=== PATIENT | female | born 1980 | race African-American/Black ===

== ENCOUNTER 2020-11-02 12:19 | Observation (INO) | payer OTHER ==
[2020-11-02 14:34] LABS: BILIRUBIN,URINE NEGATIVE (NEG); CLARITY,URINE CLEAR; COLOR,URINE YELLOW; NITRITE,URINE NEGATIVE (NEG); PROTEIN,URINE NEGATIVE (NEG-TRACE); UROBILINOGEN,URINE 0.2 mg/dL (0.2 mg/dL)
[2020-11-02] MEDS ORDERED: ACET325T11 (14:39)
[2020-11-02] MEDS ORDERED: PREN1TAB58 (14:39)
[2020-11-02] MEDS ORDERED: ASPI-630 (14:39)
[2020-11-02 14:41] LABS: BACTERIA,URINE 0 /HPF (0-FEW); RBC,URINE 0 /HPF (0-2); WBC,URINE 0 /HPF (0-4)
[2020-11-02] MEDS ORDERED: CYCL10TA19 PO (17:30)
== END 2020-11-02 13:24 | disposition home or self-care (01) ==
LOC: 3 SO LND 12:19
PROVIDERS: ADMIT Obstetrics & Gynecology; ATTEND Obstetrics & Gynecology
DX: O99.891 Other specified diseases and conditions complicating pregnancy (principal); M54.9 Dorsalgia, unspecified; R10.9 Unspecified abdominal pain; O26.893 Other specified pregnancy related conditions, third trimester; M79.604 Pain in right leg; Z3A.28 28 weeks gestation of pregnancy
CPT/HCPCS: 59025; 81001; 87086; G0378; G0379

== ENCOUNTER 2020-11-02 13:57 | Emergency (ER) | payer OTHER ==
[~2020-11-02] VITALS: Ht 152.4 cm; Wt 66.3 kg
[2020-11-02] MEDS ORDERED: PREN1TAB58 (14:39)
[2020-11-02] MEDS ORDERED: ASPI-630 (14:39)
[2020-11-02] MEDS ORDERED: ACET325T11 (14:39)
[2020-11-02] MEDS ORDERED: CYCLOBENZAPRINE 10 MG TABLET. PO ONE (15:15)
[2020-11-02] MEDS ORDERED: MAGNESIUM CHLORIDE ER 64 MG TABLET.ER PO ONE (15:15)
[2020-11-02 16:55] LABS: CALCIUM 8.5 mg/dL (8.5-10.1); CREATININE 0.5 mg/dL (0.6-1.0); GFR 166.2; MAGNESIUM 1.7 mg/dL (1.8-2.4); POTASSIUM 3.6 mmol/L (3.5-5.1)
[2020-11-02] MEDS ORDERED: CYCL10TA2 PO (17:30)
--- NOTE | 2020-11-02 17:31 | ED.ADGEN ---
Past Medical History Past Medical History: No Pertinent History Past Surgical History: No Surgical History Smoking Status: Never Smoker Alcohol Use: None General Adult EDM: Chief Complaint: HIP PAIN HPI: HPI: Patient is a 40 year old [f__sex] who presents with [] Review of Systems: Review of Systems: Constitutional: Denies fever or chills. [] Eyes: Denies change in visual acuity. [] HENT: Denies nasal congestion or sore throat. [] Respiratory: Denies cough or shortness of breath. [] Cardiovascular: Denies chest pain or edema. [] GI: Denies abdominal pain, nausea, vomiting, bloody stools or diarrhea. [] : Denies dysuria. [] Musculoskeletal: Denies back pain or joint pain. [] Integument: Denies rash. [] Neurologic: Denies headache, focal weakness or sensory changes. [] Endocrine: Denies polyuria or polydipsia. [] Lymphatic: Denies swollen glands. [] Psychiatric: Denies depression or anxiety. [] Current Medications: Current Medications Medications (Trade) Dose Ordered Sig/Kirk Start Time Stop Time Status Last Admin Dose Admin Cyclobenzaprine HCl (Flexeril) 10 mg 1X ONCE 11/02/20 15:15 11/02/20 15:22 DC 11/02/20 16:30 10 MG Magnesium Chloride (Mag Delay) 64 mg 1X ONCE 11/02/20 15:15 11/02/20 15:22 DC 11/02/20 16:30 64 MG Allergies: Allergies: Allergies Coded Allergies Type Severity Reaction Last Updated Verified No Known Drug Allergies 11/02/20 No Physical Exam: PE: Constitutional: Well developed, well nourished, no acute distress, non-toxic appearance. [] HENT: Normocephalic, atraumatic, bilateral external ears normal, oropharynx moist, no oral exudates, nose normal. [] Eyes: PERRLA, EOMI, conjunctiva normal, no discharge. [] Neck: Normal range of motion, no tenderness, supple, no stridor. [] Cardiovascular:Heart rate regular rhythm, no murmur [] Lungs & Thorax: Bilateral breath sounds clear to auscultation [] Abdomen: Bowel sounds normal, soft, no tenderness, no masses, no pulsatile masses. [] Skin: Warm, dry, no erythema, no rash. [] Back: No tenderness, no CVA tenderness. [] Extremities: No tenderness, no cyanosis, no clubbing, ROM intact, no edema. [] Neurologic: Alert and oriented X 3, normal motor function, normal sensory function, no focal deficits noted. [] Psychologic: Affect normal, judgement normal, mood normal. [] Current Patient Data: Labs: Laboratory Tests Test 11/02/20 16:35 Sodium Level 139 mmol/L (136-145) Potassium Level 3.6 mmol/L (3.5-5.1) Chloride Level 106 mmol/L (98-107) Carbon Dioxide Level 22 mmol/L (21-32) Anion Gap 11 (6-14) Blood Urea Nitrogen 3 mg/dL (7-20) L Creatinine 0.5 mg/dL (0.6-1.0) L Estimated GFR (Cockcroft-Gault) 166.2 Glucose Level 86 mg/dL (70-99) Calcium Level 8.5 mg/dL (8.5-10.1) Magnesium Level 1.7 mg/dL (1.8-2.4) L Laboratory Tests 11/02/20 16:35 Vital Signs: Vital Signs Date Time Temp Pulse Resp B/P (MAP) Pulse Ox O2 Delivery O2 Flow Rate FiO2 11/02/20 14:29 98.2 80 16 102/64 (77) 98 Room Air 98.2 EKG: EKG: [] Heart Score: C/O Chest Pain: N/A Risk Factors: Risk Factors: DM, Current or recent (<one month) smoker, HTN, HLP, family history of CAD, obesity. Risk Scores: Score 0 - 3: 2.5% MACE over next 6 weeks - Discharge Home Score 4 - 6: 20.3% MACE over next 6 weeks - Admit for Clinical Observation Score 7 - 10: 72.7% MACE over next 6 weeks - Early Invasive Strategies Radiology/Procedures: Radiology/Procedures: [] Course & Med Decision Making: Course & Med Decision Making Pertinent Labs and Imaging studies reviewed. (See chart for details) [] Dragon Disclaimer: Rebecca Disclaimer: This electronic medical record was generated, in whole or in part, using a voice recognition dictation system. Departure Departure Impression: Primary Impression: Sciatica Additional Impression: Paresthesia of both hands Disposition: 01 HOME / SELF CARE / HOMELESS Condition: STABLE Referrals: NO PCP (PCP) ERNA BRIDGES MD Neurologist for paresthesias Patient Instructions: Paresthesia, Sciatica Additional Instructions: We recommend getting wrist splints for both wrists to wear while sleeping. Scripts Cyclobenzaprine Hcl (CYCLOBENZAPRINE HCL) 10 Mg Tablet 1 TAB PO TID PRN for PAIN, #30 TAB Prov: KAVITHA KERR MD 11/02/20 Problem Qualifiers KAVITHA KERR MD Nov 02, 2020 17:31
[2020-11-02 17:48] VITALS: BP 107/71
== END 2020-11-02 17:58 | disposition home or self-care (01) ==
LOC: ER 13:57
DX: O99.891 Other specified diseases and conditions complicating pregnancy (principal); M54.31 Sciatica, right side; R20.2 Paresthesia of skin; M25.551 Pain in right hip; M79.651 Pain in right thigh; M25.561 Pain in right knee; Z3A.28 28 weeks gestation of pregnancy
CPT/HCPCS: 36415; 80048; 83735; 99285-25

== ENCOUNTER 2020-12-24 11:38 | Observation (INO) | payer OTHER ==
[~2020-12-24 11:38] MED LIST: ACET325T11; ASPI-630; CYCL10TA2 PO; PREN1TAB58
[2020-12-24] MEDS ORDERED: IV RINGERS,LACTATED 1000ML 1,000 ML IV SCH (12:15)
[2020-12-24 12:33] LABS: BILIRUBIN,URINE NEGATIVE (NEG); CLARITY,URINE CLEAR; COLOR,URINE YELLOW; NITRITE,URINE NEGATIVE (NEG); PROTEIN,URINE NEGATIVE (NEG-TRACE); UROBILINOGEN,URINE 0.2 mg/dL (0.2 mg/dL)
[2020-12-24 13:09] LABS: BACTERIA,URINE 0 /HPF (0-FEW); WBC,URINE 0 /HPF (0-4)
--- NOTE | 2020-12-26 12:44 | NUR ---
IP: Attempted to contact pt concerning covid results. no answer, no voicemail.
== END 2020-12-24 16:23 | disposition home or self-care (01) ==
LOC: 3 SO LND 11:38
PROVIDERS: ADMIT Obstetrics & Gynecology; ATTEND Obstetrics & Gynecology
DX: O21.2 Late vomiting of pregnancy (principal); O36.8130 Decreased fetal movements, third trimester, not applicable or unspecified; O62.9 Abnormality of forces of labor, unspecified; O26.893 Other specified pregnancy related conditions, third trimester; R42 Dizziness and giddiness; Z20.822 Contact with and (suspected) exposure to COVID-19; Z3A.35 35 weeks gestation of pregnancy
CPT/HCPCS: 81001; 87426; G0378; G0379; U0003; U0005; 59025

== ENCOUNTER 2021-01-07 18:36 | Observation (INO) | payer OTHER ==
[2021-01-07] MEDS ORDERED: IV RINGERS,LACTATED 1000ML 1,000 ML IV SCH (19:30)
[2021-01-07 19:32] LABS: BILIRUBIN,URINE NEGATIVE (NEG); CLARITY,URINE CLEAR; COLOR,URINE YELLOW; NITRITE,URINE NEGATIVE (NEG); PROTEIN,URINE NEGATIVE (NEG-TRACE); UROBILINOGEN,URINE 0.2 mg/dL (0.2 mg/dL)
[2021-01-07 19:38] LABS: BARBITURATES NEG (NEG); BENZODIAZEPINES NEG (NEG); CANNABINOIDS NEG (NEG); COCAINE NEG (NEG); METHADONE NEG (NEG); OPIATES NEG (NEG); PHENCYCLIDINE NEG (NEG)
[2021-01-07 19:39] LABS: AMPHETAMINE/METHAMPHETAMINE NEG (NEG)
[2021-01-07 19:49] LABS: BACTERIA,URINE FEW /HPF (0-FEW)
[2021-01-07 19:50] LABS: RBC,URINE >40 /HPF (0-2)
== END 2021-01-07 21:50 | disposition home or self-care (01) ==
LOC: 3 SO LND 18:36
PROVIDERS: ADMIT Obstetrics & Gynecology; ATTEND Obstetrics & Gynecology
DX: O46.93 Antepartum hemorrhage, unspecified, third trimester (principal); O62.9 Abnormality of forces of labor, unspecified; O26.893 Other specified pregnancy related conditions, third trimester; R10.9 Unspecified abdominal pain; Z3A.37 37 weeks gestation of pregnancy
CPT/HCPCS: 59025; 80307; 81001; 87077; 87086; G0378; G0379

== ENCOUNTER 2021-01-15 07:04 | Inpatient (IN) | payer OTHER ==
[~2021-01-15] VITALS: Ht 157.5 cm; Wt 71.0 kg
[2021-01-15 07:53] LABS: BILIRUBIN,URINE NEGATIVE (NEG); CLARITY,URINE CLOUDY; COLOR,URINE YELLOW; NITRITE,URINE NEGATIVE (NEG); PH,URINE 6.5 (<5.0-8.0); PROTEIN,URINE NEGATIVE (NEG-TRACE)
[2021-01-15 08:04] LABS: BACTERIA,URINE FEW /HPF (0-FEW); RBC,URINE 0 /HPF (0-2)
[2021-01-15 12:13] LABS: BASO % 1 % (0-3); EOS % 0 % (0-3); HEMATOCRIT 31.8 % (36.0-47.0); HEMOGLOBIN 11.1 g/dL (12.0-15.5); LYMPH # 1.4 x10^3/uL (1.0-4.8); LYMPH % 23 % (24-48); MEAN CORPUSCULAR HEMOGLOBIN 27 pg (25-35); MEAN CORPUSCULAR HGB CONC 35 g/dL (31-37); MEAN CORPUSCULAR VOLUME 77 fL (79-100); MONO # 0.4 x10^3/uL (0.0-1.1); MONO % 6 % (0-9); NEUT # 4.3 x10^3/uL (1.8-7.7); NEUT % 70 % (31-73); PLATELET COUNT 166 x10^3/uL (140-400); RED BLOOD COUNT 4.13 x10^6/uL (3.50-5.40); RED CELL DISTRIBUTION WIDTH 18.9 % (11.5-14.5); WHITE BLOOD COUNT 6.1 x10^3/uL (4.0-11.0)
[2021-01-15] MEDS: IV RINGERS,LACTATED 1000ML 1,000 ML IV SCH ×2 (12:13→19:49)
[2021-01-15] MEDS ORDERED: IV RINGERS,LACTATED 1000ML 1,000 ML IV SCH (12:15)
[2021-01-15] MEDS ORDERED: OXYTOCIN 30 UNIT/500 ML PREMIX 500 ML IV PRN ×3 (12:15→23:45)
[2021-01-15] MEDS ORDERED: ACETAMINOPHEN 325 MG TABLET. PO PRN ×2 (12:15→23:45)
[2021-01-15] MEDS ORDERED: BUTORPHANOL 2 MG/ML VIAL. IVP PRN ×2 (12:15)
[2021-01-15] MEDS ORDERED: LIDOCAINE 1% PF 30 ML VIAL. INJ PRN (12:15)
[2021-01-15] MEDS ORDERED: TERBUTALINE 1 MG/ML VIAL. SQ PRN (12:15)
[2021-01-15] MEDS ORDERED: 0.9 % SODIUM CHLORIDE 10 ML DISP.SYRIN. IV PRN ×2 (12:15→23:45)
[2021-01-15 12:30] VITALS: BP 125/76
--- NOTE | 2021-01-15 12:52 | PDOC1 ---
ONLINE CONTENT DEVELOPER H&P Date of Admission: Date of Admission: Jan 15, 2021 at 12:30 History of Present Illness: EDC: 01/22/21 LMP: 04/17/20 40y @ 39.0 by L=13 who presented to L&D with ctxs. The pt was found to be 1 cm on presentation. She remained unchanged after a couple. Discussed with the pt if she desired indxn today. The pt was willing to proceed. The pts was complicated by getting Covid 12/24/20. She has had an otherwise uncomplicated . PMH: Denies PSH: Denies Meds: ASA, PNV, Omeprazole, Fe All: NKDA OBHx: TSVD x 3 SH: no tob, no EtOH FH: contributory Medications: Meds: Current Medications Medications (Trade) Dose Ordered Sig/Kirk Route PRN Reason Start Time Stop Time Status Last Admin Dose Admin Ringer's Solution 1,000 ml @ 125 mls/hr Q8H IV 01/15/21 07:30 01/15/21 12:13 Oxytocin 500 ml @ 0 mls/hr CONT PRN IV SEE I/O RECORD 01/15/21 12:15 01/15/21 12:13 Allergies: Coded Allergies: No Known Drug Allergies (Unverified , 01/07/21) Physical Exam: Vital Signs: Vital Signs Date Time Temp Pulse Resp B/P (MAP) Pulse Ox O2 Delivery O2 Flow Rate FiO2 01/15/21 12:30 98.3 83 18 125/76 (92) Room Air 98.3 PE: GENERAL: No apparent distress. Alert and oriented. HEENT: Head normocephalic, atraumatic. NECK: Supple LUNGS: Clear to auscultation. HEART: RRR, S1, S2 present, pulses intact ABDOMEN: Soft, positive bowel sounds. EXTREMITIES: No cyanosis or edema. NEUROLOGIC: Normal speech, normal tone PSYCHIATRIC: Normal affect, normal mood. SKIN: No ulceration. FHT: 130s +acels/no decels/mLTV Botines: 2-5 min SVE: 50/-3 Labs: Laboratory Tests Test 01/15/21 07:30 01/15/21 11:30 Urine Collection Type Unknown Urine Color Yellow Urine Clarity Cloudy Urine pH 6.5 (<5.0-8.0) Urine Specific [place] 1.020 (1.000-1.030) Urine Protein Negative mg/dL (NEG-TRACE) Urine Glucose (UA) Negative mg/dL (NEG) Urine Ketones (Stick) Negative mg/dL (NEG) Urine Blood Negative (NEG) Urine Nitrite Negative (NEG) Urine Bilirubin Negative (NEG) Urine Urobilinogen Dipstick 1.0 mg/dL (0.2 mg/dL) Urine Leukocyte Esterase Small (NEG) Urine RBC 0 /HPF (0-2) Urine WBC 5-10 /HPF (0-4) Urine Squamous Epithelial Cells Many /LPF Urine Bacteria Few /HPF (0-FEW) White Blood Count 6.1 x10^3/uL (4.0-11.0) Red Blood Count 4.13 x10^6/uL (3.50-5.40) Hemoglobin 11.1 g/dL (12.0-15.5) L Hematocrit 31.8 % (36.0-47.0) L Mean Corpuscular Volume 77 fL (79-100) L Mean Corpuscular Hemoglobin 27 pg (25-35) Mean Corpuscular Hemoglobin Concent 35 g/dL (31-37) Red Cell Distribution Width 18.9 % (11.5-14.5) H Platelet Count 166 x10^3/uL (140-400) Neutrophils (%) (Auto) 70 % (31-73) Lymphocytes (%) (Auto) 23 % (24-48) L Monocytes (%) (Auto) 6 % (0-9) Eosinophils (%) (Auto) 0 % (0-3) Basophils (%) (Auto) 1 % (0-3) Neutrophils # (Auto) 4.3 x10^3/uL (1.8-7.7) Lymphocytes # (Auto) 1.4 x10^3/uL (1.0-4.8) Monocytes # (Auto) 0.4 x10^3/uL (0.0-1.1) Eosinophils # (Auto) 0.0 x10^3/uL (0.0-0.7) Basophils # (Auto) 0.0 x10^3/uL (0.0-0.2) Laboratory Tests 01/15/21 11:30 Laboratory Tests 01/15/21 11:30 Assessment & Plan: A/P 40y @ 39.0 by L=13 1.) Indxn started on Pit 2.) Covid pos 12/24/20 3.) AMA - quad screen neg, on ASA 4.) Anemia 5.) Elevated GTT - 0 of 4 values of 3hr GTT elevated 6.) TDAP given 11/03/20 7.) Fetus cat I FHT 8.) DPS - JEREMÍAS consent signed 09/08/20 9.) GBS pos PCN GUSTAVO CHANG MD Jan 15, 2021 12:52
[2021-01-15] MEDS ORDERED: PENICILLIN G K 5,000,000 UNIT in IV DEXTROSE 5% 100ML 100 ML IV ONE (13:00)
[2021-01-15] MEDS: PENICILLIN G K 2,500,000 UNIT in IV DEXTROSE 5% 50 ML IV SCH ×2 (17:33→21:30)
[2021-01-15] MEDS ORDERED: LIDOCAINE 2% PF 5 ML VIAL. ONE (18:03)
[2021-01-15] MEDS ORDERED: L&D EPIDURAL SYRINGE 50 ML ONE (18:37)
[2021-01-15] MEDS ORDERED: ROPIVACAINE 0.5% EPID PRN (19:00)
[2021-01-15] MEDS ORDERED: [UNRECOGNIZED DRUG - OTHER] EPID PRN (19:00)
[2021-01-15] MEDS ORDERED: NORMAL SALINE EPID PRN (19:00)
[2021-01-15] MEDS ORDERED: FENTANYL EPID PRN (19:00)
[2021-01-15] MEDS ORDERED: L&D EPIDURAL 50 ML SYRINGE. ONE (19:00)
[2021-01-15] MEDS ORDERED: L&D EPIDURAL SYRINGE 50 ML EPID PRN (19:15)
--- NOTE | 2021-01-15 23:31 | PDOC4 ---
VAGINAL DELIVERY DATE DATE: 01/15/21 TIME: 23:31 TIME Patient delivered a viable male over intact perineum at 2325. Wt 6 lb 6 oz. Apgars 8/9. Placenta delivered spontaneously, intact with 3VC. No lacerations noted. Good hemostasis noted. 20 U of Pit given with IVF. EBL 200 cc. WEIGHT Weight [ ] GUSTAVO CHANG MD Jan 15, 2021 23:31
[2021-01-15] MEDS ORDERED: HYDROCORTISONE 1% TOPICAL OINTMENT 30GM TUBE. TP PRN (23:45)
[2021-01-15] MEDS ORDERED: DOCUSATE SODIUM 100 MG CAPSULE. PO PRN (23:45)
[2021-01-15] MEDS ORDERED: MAG HYDROX/ALUMINUM HYD/SIMETH 30 ML ORAL.SUSP PO PRN (23:45)
[2021-01-15] MEDS ORDERED: diphenhydrAMINE HCL 25 MG CAPSULE PO PRN (23:45)
[2021-01-15] MEDS ORDERED: TDaP (Adacel) per PROTOCOL. MC PRN (23:45)
[2021-01-15] MEDS ORDERED: BENZOCAINE 20% TOPICAL AEROSOL SPRAY 57GM CAN. TP PRN (23:45)
[2021-01-15] MEDS ORDERED: ZOLPIDEM 5 MG TABLET. PO PRN (23:45)
[2021-01-15] MEDS ORDERED: PHENYLEPH/MINERAL OIL/PETROLAT RECTAL OINTMENT TUBE. RC PRN (23:45)
[2021-01-15] MEDS ORDERED: MMR per PROTOCOL. MC PRN (23:45)
[2021-01-15] MEDS ORDERED: SIMETHICONE 80 MG TAB.CHEW PO PRN (23:45)
[2021-01-15] MEDS ORDERED: oxyCODONE/APAP 5/325 1 TAB TABLET PO PRN (23:45)
[2021-01-15] MEDS ORDERED: MAGNESIUM HYDROXIDE 2,400 MG/30 ML ORAL.SUSP. PO PRN (23:45)
[2021-01-16] VITALS (11 sets, daily range): BP systolic 106–125; BP diastolic 70–84
[2021-01-16] MEDS: FERROUS SULFATE 325 MG TABLET. PO SCH ×2 (08:00→17:00)
[2021-01-16] MEDS ORDERED: PROCHLORPERAZINE 10 MG/2 ML VIAL. IVP PRN ×2 (08:15→18:15)
[2021-01-16] MEDS ORDERED: fentaNYL PF VIAL 100 MCG/2 ML VIAL IVP PRN ×3 (08:15→18:15)
[2021-01-16] MEDS ORDERED: MORPHINE SULFATE 2 MG/ML INJ. IVP PRN (08:15)
[2021-01-16] MEDS ORDERED: IV RINGERS,LACTATED 1000ML 1,000 ML IV SCH ×2 (08:15→18:00)
[2021-01-16] MEDS ORDERED: HYDROmorphone 2 MG/ML VIAL IVP PRN ×2 (08:15→18:15)
[2021-01-16 08:29] LABS: HEMATOCRIT 30.4 % (36.0-47.0); HEMOGLOBIN 10.3 g/dL (12.0-15.5); RED BLOOD COUNT 3.89 x10^6/uL (3.50-5.40); RED CELL DISTRIBUTION WIDTH 18.8 % (11.5-14.5); WHITE BLOOD COUNT 11.4 x10^3/uL (4.0-11.0)
[2021-01-16] MEDS ORDERED: PRENATAL MULTIVITAMIN TABLET. PO SCH (09:00)
[2021-01-16] MEDS ORDERED: SUCCINYLCHOLINE 200 MG/10 ML VIAL. ONE ×2 (09:32→10:59)
[2021-01-16] MEDS ORDERED: fentaNYL PF VIAL 100 MCG/2 ML VIAL ONE ×2 (09:32→18:01)
[2021-01-16] MEDS ORDERED: MIDAZOLAM HCL/PF 2 MG/2 ML VIAL. ONE (09:32)
[2021-01-16] MEDS ORDERED: PROPOFOL 10 MG/ML (20ML) VIAL. IV ONE ×2 (09:32→16:58)
[2021-01-16] MEDS ORDERED: LIDOCAINE 2% PF 5 ML VIAL. ONE ×3 (09:32→16:58)
[2021-01-16] MEDS ORDERED: SUGAMMADEX SODIUM 200 MG/2 ML VIAL. IVP ONE (10:00)
[2021-01-16] MEDS ORDERED: DEXAMETHASONE SOD PHOS 4 MG/ML VIAL ONE (17:24)
[2021-01-16] MEDS ORDERED: ONDANSETRON PF 4 MG/2 ML VIAL. ONE (17:24)
[2021-01-16] MEDS ORDERED: PHENYLEPHRINE in 0.9% NACL PF 1 MG/10 ML SYRINGE. IV ONE (17:29)
[2021-01-16] MEDS ORDERED: SEVOFLURANE 31 TO 60 MINUTES. IH ONE (17:30)
[2021-01-16] MEDS ORDERED: KETOROLAC 30 MG/ML VIAL. ONE (17:55)
--- NOTE | 2021-01-16 17:59 | PDOC4 ---
OPERATIVE NOTE: PreOp Dx: 1.) DPS, 2.) Multiparity, 3.) Anemia, 4.) AMA PostOp Dx: same Procedure: PPBTL Surgeon: Mary Chang Anesthesia: GETA EBL: 50 cc Fluids: 1000 cc Findings: nml tubes and ovary Complications: none Pathology: bilateral tubal segments GUSTAVO CHANG MD Jan 16, 2021 17:59
[2021-01-16] MEDS: fentaNYL PF VIAL 100 MCG/2 ML VIAL IVP PRN ×2 (18:08→18:18)
--- NOTE | 2021-01-16 18:16 | OP ---
DATE OF SURGERY: 01/16/2021 PREOPERATIVE DIAGNOSES: 1. Desires permanent sterilization. 2. Multiparity. 3. Anemia. 4. Advanced maternal age. POSTOPERATIVE DIAGNOSES: 1. Desires permanent sterilization. 2. Multiparity. 3. Anemia. 4. Advanced maternal age. PROCEDURE: bilateral tubal ligation. SURGEON: Eliot Sher MD ANESTHESIA: General endotracheal intubation. ESTIMATED BLOOD LOSS: 50 mL. FLUIDS: 1000 mL. FINDINGS: Normal tubes and ovaries. COMPLICATIONS: None. PATHOLOGY: Bilateral tubal segments. DESCRIPTION OF PROCEDURE: The patient was taken to the operating room where general endotracheal intubation was obtained without difficulty. The patient was prepped and draped in normal sterile fashion. A small transverse infraumbilical skin incision was made with a scalpel. The incision was carried down to the underlying layer of fascia. The fascia was then incised to allow for the peritoneum to be grasped and entered sharply with Metzenbaum scissors. At that point, the left fallopian tube was identified and followed out to the fimbria. A Harris clamp was used to grasp the tube approximately 4 cm from the cornual region. A 3 cm segment of the tube was then ligated first by placing a free tie of 0 gut and then placing a second tie just above this. The tubal segment was then incised with Metzenbaum scissors. At that point, the tubal ends were made hemostatic with the Bovie. The tube was then returned to the abdomen. Attention was then turned to the right tube, which again was grasped and followed out to the fimbria. The tube was then grasped 3 cm from the cornual region. A 3 cm segment of the tube was then excised in a similar fashion, first by placing two ties of 0 plain gut and then cutting the tube with Metzenbaum scissors. The edges of the tubes were made hemostatic with the Bovie. At that point, the tube was returned to the abdomen. The fascia was then closed with 0 Vicryl in a running fashion. The skin was then closed with 4-0 Monocryl in subcuticular manner. The patient tolerated the procedure well. Sponges, laps and needles were correct x 2. The patient was taken to recovery room in stable condition. CARLOS DR: Nita TID: [id number]
[2021-01-16] MEDS ORDERED: MORPHINE SULFATE 2 MG/ML INJ. ONE (18:30)
[2021-01-16] MEDS: MORPHINE SULFATE 2 MG/ML INJ. IVP PRN ×2 (18:34→18:47)
[2021-01-16] MEDS ORDERED: HYDROmorphone 2 MG/ML VIAL ONE (18:44)
[2021-01-16] MEDS: IBUPROFEN 400 MG TABLET. PO PRN (22:11)
[2021-01-17 01:58] VITALS: BP 103/63
[2021-01-17 05:58] VITALS: BP 111/72
[2021-01-17] MEDS: IBUPROFEN 400 MG TABLET. PO PRN ×2 (06:01→18:05)
[2021-01-17 10:30] VITALS: BP 108/77
--- NOTE | 2021-01-17 10:52 | PDOC ---
SPARE HAND CARDING PROGRESS NOTE Date of Service: DATE: 01/17/21 TIME: 10:51 Subjective: Pt with good pain control. Gabriel PO. Voiding. Minimal lochia Objective: Vital Signs: Vital Signs Date Time Temp Pulse Resp B/P (MAP) Pulse Ox O2 Delivery O2 Flow Rate FiO2 01/16/21 07:30 98.3 81 20 106/73 (84) 98.3 01/16/21 09:50 99 Room Air 01/16/21 17:55 8 Vital Signs Date Time Temp Pulse Resp B/P (MAP) Pulse Ox O2 Delivery O2 Flow Rate FiO2 01/17/21 10:30 98.1 84 20 108/77 (87) 99 98.1 01/17/21 05:58 Room Air 01/16/21 18:10 8.0 Physical Exam: GENERAL: No apparent distress. Alert and oriented. HEENT: Head normocephalic, atraumatic. NECK: Supple LUNGS: Clear to auscultation. HEART: RRR, S1, S2 present, pulses intact ABDOMEN: Soft, positive bowel sounds. EXTREMITIES: No cyanosis or edema. NEUROLOGIC: Normal speech, normal tone PSYCHIATRIC: Normal affect, normal mood. SKIN: No ulceration. FFNT below umb No C/C/E Assessment & Plan: A/P 40y PPD #2 s/p and POD #1 s/p PPBTL 1.) PP/PO doing well 2.) Covid pos 12/24/20 3.) Anemia Hgb 11.1 -> 10.3 -> pending 4.) D/c home GUSTAVO CHANG MD Jan 17, 2021 10:52
[2021-01-17] MEDS ORDERED: OXYC1TAB15 PO (10:57)
[2021-01-17 11:32] LABS: BASO % 0 % (0-3); EOS # 0.1 x10^3/uL (0.0-0.7); EOS % 1 % (0-3); HEMATOCRIT 27.3 % (36.0-47.0); HEMOGLOBIN 9.4 g/dL (12.0-15.5); LYMPH # 1.8 x10^3/uL (1.0-4.8); LYMPH % 18 % (24-48); MEAN CORPUSCULAR HEMOGLOBIN 27 pg (25-35); MEAN CORPUSCULAR HGB CONC 35 g/dL (31-37); MEAN CORPUSCULAR VOLUME 79 fL (79-100); MONO # 0.6 x10^3/uL (0.0-1.1); MONO % 6 % (0-9); NEUT # 7.6 x10^3/uL (1.8-7.7); NEUT % 75 % (31-73); PLATELET COUNT 165 x10^3/uL (140-400); RED BLOOD COUNT 3.48 x10^6/uL (3.50-5.40); RED CELL DISTRIBUTION WIDTH 18.6 % (11.5-14.5); WHITE BLOOD COUNT 10.1 x10^3/uL (4.0-11.0)
--- NOTE | 2021-01-17 12:28 | DS ---
DATE OF DISCHARGE: 01/17/2021 ADMISSION DIAGNOSES: 1. Intrauterine at 39 weeks and 0 days by LMP equal to a 13-week ultrasound. 2. Induction of labor. 3. COVID positive on 12/24/2020. 4. Advanced maternal age. 5. Anemia. 6. Elevated GTT with normal 3-hour GTT. 7. Status post Tdap. 8. Desires permanent sterilization. 9. GBS positive. DISCHARGE DIAGNOSES: 1. Intrauterine at 39 weeks and 0 days by LMP equal to a 13-week ultrasound. 2. Induction of labor. 3. COVID positive on 12/24/2020. 4. Advanced maternal age. 5. Anemia. 6. Elevated GTT with normal 3-hour GTT. 7. Status post Tdap. 8. Desires permanent sterilization. 9. GBS positive. PROCEDURES: 1. Spontaneous vaginal delivery. 2. tubal ligation. BRIEF HOSPITAL COURSE: The patient is a 40-year-old 4, para 3-0-0-3, who presented to Labor and Delivery at 39 weeks and 0 days by LMP equal to 13-week ultrasound with contractions. The patient was found to be 1 cm on presentation. The patient was rechecked after a couple hours and remained unchanged. Discussion was held with the patient regarding starting an induction at that time. The patient was willing to proceed. The patient was started on Pitocin and ultimately delivered by vaginal delivery. See delivery note for full detail. On day #1, the patient was set up for a tubal ligation. The patient underwent said procedure. See operative note for full detail. By day #2, the patient was meeting all discharge criteria and subsequently discharged home. Of note, the patient's hemoglobin on admission was 11.1 and after delivery, it was found to be 10.3. Her hemoglobin after surgery was pending. DISCHARGE INSTRUCTIONS: The patient was told not to lift anything greater than 20 pounds, have pelvic rest for 6 weeks, not to drive on narcotics. CALL IF: The patient was to call if she had fevers, chills, nausea, vomiting, abdominal pain, or any additional questions or concerns. FOLLOWUP APPOINTMENT: The patient was to follow up on 01/21/2021 at 1:00 p.m. for an incision check. DISCHARGE MEDICATIONS: The patient was given a prescription for Percocet 5, 10 pills, Motrin 800 mg, 30 pills; Colace 100 mg, 30 pills and ferrous sulfate 325 mg, [address]. [address]: Nita TID: [id number]
[2021-01-17 15:00] VITALS: BP 106/68
[2021-01-17 18:40] VITALS: BP 112/44
--- NOTE | 2021-01-20 17:07 | PATHOLOGY ---
[facility] Accession Number: [id number] . 01 Material submitted: . fallopian tube - FALLOPIAN TUBES . 01 Clinical history: . TUBAL LIGATION . 02 Diagnosis: Bilateral tubal ligation: - Segments (2) of fallopian tube confirmed. (JPM:lobito; 01/20/2021) QMS 01/20/2021 1640 Local . 02 Electronically signed: . Richard Yu MD, Pathologist NPI- [id number] . 01 Gross description: . Fixative: Formalin Labeled: Fallopian tubes Fallopian tube #1 Measurements: 2.5 cm in length by 0.9 cm in diameter Fimbriated: Yes External surface: Brown-solo, smooth Cut Surface: Patent Fallopian tube #2 Measurements: 2.2 cm in length by 0.8 cm in diameter Fimbriated: Yes External surface: Brown-solo, smooth Cut Surface: Patent . A1 Etcher Apprentice fallopian tube #1 and fimbriated end A2 Etcher Apprentice fallopian tube #2 and fimbriated end ([facility]; 01/19/2021) NRI/NRI 01/19/2021 1612 Local . 02 Pathologist provided ICD-10: Z03.89 . 02 CPT . 332926 Specimen Comment: A courtesy copy of this report has been sent to [phone] Specimen Comment: Report sent to Performed at: 01 [facility] [address], [place] [id number] MD Yaya Fuentes MD Phone: [phone] Performed at: 02 [facility] [address] [place], [place] [id number] MD Richard Yu MD Phone: [phone]
--- NOTE | 2021-01-21 17:08 | PATHOLOGY ---
[facility] Accession Number: [id number] . 01 Material submitted: . placenta - PLACENTA W/ CORD . 01 Clinical history: . LABOR 39 WKS AMA LABOR INDUCTION PITOCIN VAGINAL DELIVERY 02/04/21 2324 [id number] . 02 Diagnosis: 605 gram term placenta of an estimated 39 weeks gestation with attached membranes and umbilical cord: - Placental weight at approximate 80-85th percentile for estimated gestational age. - Few subamniotic pigmented macrophages. - Chorangiosis, focal. - Focal slight villous edema. (JPM:lobito; 01/21/2021) S 01/21/2021 1649 Local . 02 Comment: There is no evidence of an acute chorioamnionitis or villitis. There are no infarcts. (JPM:lobito; 01/21/2021) . 02 Electronically signed: . Richard Yu MD, Pathologist NPI- [id number] . 01 Gross description: . Fixative: Formalin Labeled: Placenta Specimen received: [place] placenta with attached membranes and umbilical cord Trimmed placental weight: 605 g Dimensions: 18.8 x 16.2 x 3.0 cm membranes: Blue-solo, translucent membrane rupture: 3.5 cm from placental disc surface: Intact and complete Umbilical cord: 20.2 cm in length, 1.3-1.9 cm in diameter Umbilical cord insertion: Eccentric, 4.5 cm from the closest placental margin Number of umbilical vessels: 3 Umbilical cord appearance: Pale burden with moderate helical twisting Maternal surface: Intact and complete with a moderate amount of adherent blood coagulum Cut surfaces: Red-brown to pink-red Abnormalities: None identified . Patient Care sections are submitted as follows: A1 surface vessels and proximal umbilical cord A2 membranes and umbilical cord A3-A4 shipping services sales representative sections of maternal surface. (CAA; 01/19/2021) QAC/QAC 01/21/2021 1138 Local . 02 Pathologist provided ICD-10: O43.893, Z37.0, Z3A.39 . 02 CPT . 313370 Specimen Comment: A courtesy copy of this report has been sent to [phone] Specimen Comment: Report sent to Performed at: 01 [facility] [address], [place] [id number] MD Yaya Fuentes MD Phone: [phone] Performed at: 02 [facility] [address] [place], [place] [id number] MD Richard Yu MD Phone: [phone]
== END 2021-01-17 18:40 | disposition home or self-care (01) | DRG 798 ==
LOC: 3 SO LND 07:04 → OBSVTOIN 12:30 → 3 SO LND 01-16 13:02
PROVIDERS: ADMIT Obstetrics & Gynecology; ATTEND Obstetrics & Gynecology
PROC: 10E0XZZ Delivery of Products of Conception, External Approach (ICD-10-PCS; principal; 2021-01-15)
PROC: 0UB70ZZ Excision of Bilateral Fallopian Tubes, Open Approach (ICD-10-PCS; 2021-01-16)
DX: O99.824 Streptococcus B carrier state complicating childbirth (principal); Z37.0 Single live birth; O99.02 Anemia complicating childbirth; D64.9 Anemia, unspecified; Z3A.39 39 weeks gestation of pregnancy; Z86.16 Personal history of COVID-19; Z30.2 Encounter for sterilization
CPT/HCPCS: 36415; 81001; 85025; 85027; 86592; 86850; 86900; 86901; 87086; 87147; 88302; 88307; A4364; A4452; A4930; A6219; A6402; G0378; G0379; J0330; J0595; J1100; J1170; J1885; J2250; J2270; J2370; J2405; J2540; J2590; J2704; J3010; J7060; J7120